=== PATIENT | female | born 1935 | race Caucasian/White ===

== ENCOUNTER 2017-02-24 10:23 | Emergency (ER) | payer MEDICARE ==
--- NOTE | 2017-02-24 11:03 | RAD ---
TWO VIEWS OF THE LEFT HIP: Date: 02-24-17 Comparison: CT pelvis 08-13-12 History: Joint pain, left hip pain. FINDINGS: Old fractures are noted involving the superior and inferior pubic rami on the left. There is mild bucio perior joint space narrowing involving the left hip. There is acetabular osteophyte formation seen l aterally. There is no acute fracture or evidence of dislocation. IMPRESSION: Old pelvic fractures and degenerative joint disease. No acute fracture or dislocation seen. POS: [facility]
== END 2017-02-24 11:40 | disposition home or self-care (01) ==
LOC: NAV ERS 10:23
DX: M16.12 Unilateral primary osteoarthritis, left hip (principal); I10 Essential (primary) hypertension

== ENCOUNTER 2017-09-14 10:02 | Emergency (ER) | payer MEDICARE ==
--- NOTE | 2017-09-14 11:05 | RAD ---
RIGHT ELBOW 2 VIEWS: Date: 09/14/17 HISTORY: Fall. Right elbow pain. FINDINGS/IMPRESSION: There is posterior dislocation at the elbow joint. There is suggestion of a fracture, likely from co ronoid process of the ulna. POS: [facility]
--- NOTE | 2017-09-14 11:08 | RAD ---
RADIOGRAPH RIGHT ELBOW TWO VIEWS: 09/14/2017 10:37 a.m. HISTORY: An 82-year-old female with an acute traumatic right elbow dislocation. COMPARISON: 09/14/2017 at 10:26 a.m. FINDINGS: The AP view is nondiagnostic because the elbow is still flexed 90 degrees, and the upper extremity i s oblique. On the lateral view, the previously demonstrated dislocation has been reduced. IMPRESSION: Interval successful reduction of the previously demonstrated acute traumatic posterior elbow disloca tion. POS: [facility]
== END 2017-09-14 11:25 | disposition home or self-care (01) ==
LOC: NAV ERS 10:02
DX: S53.124A Posterior dislocation of right ulnohumeral joint, initial encounter (principal); I10 Essential (primary) hypertension; W01.0XXA Fall on same level from slipping, tripping and stumbling without subsequent striking against object, initial encounter
CPT/HCPCS: 24600

== ENCOUNTER 2018-04-28 08:40 | Emergency (ER) | payer MEDICARE ==
[2018-04-28] MEDS ORDERED: Lidocaine 1% 20 ML MDV ONE (09:48)
--- NOTE | 2018-04-28 09:51 | RAD ---
LEFT THUMB 3 VIEWS: Date: 04/28/18 HISTORY: Thumb pain and swelling. FINDINGS: There are fairly pronounced arthritic changes of the thumb. These include changes of the first carpom etacarpal joint space, first metacarpal phalangeal joint, and interphalangeal joint. No acute bony pr ocess noted. IMPRESSION: Marked arthritic changes of the thumb. POS: [facility]
[2018-04-28] MEDS ORDERED: Clindamycin 150 MG CAP ONE (10:11)
== END 2018-04-28 10:25 | disposition home or self-care (01) ==
LOC: NAV ERS 08:40
DX: L02.522 Furuncle left hand (principal); E78.5 Hyperlipidemia, unspecified; F03.90 Unspecified dementia, unspecified severity, without behavioral disturbance, psychotic disturbance, mood disturbance, and anxiety; I10 Essential (primary) hypertension; Z79.899 Other long term (current) drug therapy
CPT/HCPCS: 10060; 87070; 87205; J2001

== ENCOUNTER 2018-12-08 11:08 | Outpatient (CLI) | payer MEDICARE ==
--- NOTE | 2018-12-08 13:30 | ULT ---
LEFT LOWER EXTREMITY VENOUS DUPLEX EXAM: HISTORY: Left leg edema and pain. FINDINGS: Real-time color Doppler evaluation of the left lower extremity was prepped from groin to calf. This includes evaluation of the common femoral, superficial and profunda femoral, saphenous, popliteal, an d posterior tibial veins. This shows a patent deep venous system. There is normal compressibility a nd augmentation. There is no evidence of DVT. IMPRESSION: No evidence of deep vein thrombosis of the left lower extremity. POS: [facility]
== END 2018-12-08 11:09 | disposition home or self-care (01) ==
LOC: NAV ULT 11:08
PROVIDERS: ATTEND Internal Medicine
DX: L03.116 Cellulitis of left lower limb (principal)

== ENCOUNTER 2019-02-06 20:28 | Emergency (ER) | payer MEDICARE ==
[2019-02-06] MEDS ORDERED: Dextrose 5 %-0.45 % NaCl 1,000 ML ONE (21:12)
[2019-02-06] MEDS ORDERED: Thiamine HCl 200 MG/2 ML VIAL ONE (21:12)
[2019-02-06] MEDS ORDERED: Multivit, Adult Inj 10 ML VIAL ONE (21:12)
[2019-02-06 21:20] LABS: #Basophils 0.1 thou/uL (0.0-0.2); #Eosinphils 0.1 thou/uL (0.0-0.7); #Lymphocytes 1.6 thou/uL (1.20-3.40); #Monocytes 0.6 thou/uL (0.11-0.59); #Neutrophils 4.3 thou/uL (1.40-6.50); %Basophils 0.8 % (0.0-1.0); %Eosinophils 2.1 % (0.0-10.0); %Lymphocytes 23.9 % (21.0-51.0); %Monocytes 8.5 % (0.0-10.0); %Neutrophils 64.7 % (42.0-75.0); Hemoglobin 13.7 g/dL (12.0-16.0); Mean Corpuscular HGB CONC 32.6 g/dL (32.0-36.0); Mean Corpuscular Hemoglobin 30.9 pg (27.0-31.0); Mean Corpuscular Volume 94.9 fL (78.0-98.0); Mean Platelet Volume 6.1 fL (7.4-10.4); Platelet Count 215 thou/uL (130-400); RBC Distribution Width 12.4 % (11.5-14.5); Red Blood Cell (RBC) Count 4.42 mill/uL (4.20-5.40); White Blood Cell (WBC) Count 6.7 thou/uL (4.8-10.8)
[2019-02-06] MEDS ORDERED: Multivitamin W/ Minerals 1 TAB PO SCH (21:30)
[2019-02-06] MEDS ORDERED: Lidocaine 1% w/Epinephrine 1:100K 30 ML VIAL ONE (21:30)
[2019-02-06 21:31] LABS: PTT 29.5 SEC (22.9-36.1); Prothrombin Time 13.2 SEC (12.0-14.7)
[2019-02-06 21:41] LABS: ALT (SGPT) 17 U/L (8-55); AST (SGOT) 29 U/L (5-34); Albumin 4.1 g/dL (3.4-4.8); Alkaline Phosphatase 85 U/L (40-150); Anion Gap 17 mmol/L (10-20); BUN (Urea Nitrogen) 21 mg/dL (9.8-20.1); Bilirubin, Total 0.4 mg/dL (0.2-1.2); CK (CPK) 36 U/L (29-168); Calc. Creatinine Clearance 0 mL/min (70-130); Calcium 9.9 mg/dL (7.8-10.44); Carbon Dioxide 21 mmol/L (23-31); Chloride 108 mmol/L (98-107); Estimated GFR-MDRD 60; Globulin 3.3 g/dL (2.4-3.5); Glucose 119 mg/dL (83-110); Potassium 3.6 mmol/L (3.5-5.1); Protein, Total 7.4 g/dL (6.0-8.3); Sodium 142 mmol/L (136-145)
--- NOTE | 2019-02-06 22:20 | CT ---
CT BRAIN: History: 83-year-old with history of fall with scalp hematoma. FINDINGS: Noncontrast enhanced CT images of the brain demonstrate a large right frontal scalp hematoma. Diffuse cortical atrophy and deep white matter ischemic changes seen. No evidence of acute intracrani al masses, hemorrhages, strokes or contusions seen. IMPRESSION: Large right frontal scalp hematoma. No acute intracranial abnormalities seen. POS: [facility]
--- NOTE | 2019-02-06 23:08 | CT ---
CT CERVICAL SPINE: History: Fall. Patient smelling of alcohol. Technique: Noncontrast enhanced CT images cervical spine obtained. Sagittal and coronal reconstructed images performed. FINDINGS: Images demonstrate atherosclerotic calcifications seen in the carotid arteries. There is grade II anterolisthesis of C4 on C5. Multilevel facet degenerative changes seen at C4-5, C5 -6, and C6-7. Disc space height loss with degenerative changes seen at the intervertebral disc spaces of C4-5, C5-6, and C6-7. There does appear to be an area of mild superior endplate collapse above the superior aspect of the T 1 vertebral body. This may represent a superior anterior aspect T1 approximately 20% compression frac ture. This area previously was not covered on previous CT from 05-25-15 to compare with today's exam. T herefore, I cannot determine whether this represents a new fracture or is an old finding. The rest of the cervical spine demonstrates no evidence of acute fractures and demonstrates multilevel degenerat jaskaran changes and spondylosis with facet and disc changes of spondylosis as well as Grade I anterolisth esis of C4 on C5. IMPRESSION: If there is concern for acute pathology, further evaluation using neurosurgical consultation and elec tive MRI of the cervicothoracic junction may further be able to characterize rather this is an acute or old finding. POS: [facility]
== END 2019-02-06 22:05 | disposition home or self-care (01) ==
LOC: NAV ERS 20:28
DX: S01.81XA Laceration without foreign body of other part of head, initial encounter (principal); S22.019A Unspecified fracture of first thoracic vertebra, initial encounter for closed fracture; I10 Essential (primary) hypertension; F03.90 Unspecified dementia, unspecified severity, without behavioral disturbance, psychotic disturbance, mood disturbance, and anxiety; E78.5 Hyperlipidemia, unspecified; Z79.899 Other long term (current) drug therapy; W22.8XXA Striking against or struck by other objects, initial encounter
CPT/HCPCS: 12011; 36415; 70450; 72125; 80053; 82550; 85025; 85610; 85730; 96374; 96375; J2001; J3411; J7042

== ENCOUNTER 2019-08-25 14:24 | Outpatient (CLI) | payer MEDICARE ==
[~2019-08-25 14:24] MED LIST: Iopamidol 370 76% 50 ML VIAL FS ONE
[2019-08-25 14:42] LABS: #Basophils 0.1 thou/uL (0.0-0.2); #Eosinphils 0.1 thou/uL (0.0-0.7); #Lymphocytes 1.6 thou/uL (1.20-3.40); #Monocytes 0.5 thou/uL (0.11-0.59); #Neutrophils 3.9 thou/uL (1.40-6.50); %Basophils 1.2 % (0.0-1.0); %Eosinophils 1.6 % (0.0-10.0); %Lymphocytes 26.1 % (21.0-51.0); %Monocytes 8.8 % (0.0-10.0); %Neutrophils 62.4 % (42.0-75.0); Hemoglobin 13.4 g/dL (12.0-16.0); Mean Corpuscular HGB CONC 32.3 g/dL (32.0-36.0); Mean Corpuscular Hemoglobin 29.6 pg (27.0-31.0); Mean Corpuscular Volume 91.6 fL (78.0-98.0); Mean Platelet Volume 7.7 fL (7.4-10.4); Platelet Count 221 thou/uL (130-400); RBC Distribution Width 11.7 % (11.5-14.5); Red Blood Cell (RBC) Count 4.51 mill/uL (4.20-5.40); White Blood Cell (WBC) Count 6.2 thou/uL (4.8-10.8)
[2019-08-25 15:00] LABS: ALT (SGPT) 18 U/L (8-55); AST (SGOT) 20 U/L (5-34); Alkaline Phosphatase 78 U/L (40-110); Anion Gap 14 mmol/L (10-20); BUN (Urea Nitrogen) 35 mg/dL (9.8-20.1); Bilirubin, Total 0.5 mg/dL (0.2-1.2); Calc. Creatinine Clearance 0 mL/min (70-130); Calcium 9.8 mg/dL (7.8-10.44); Carbon Dioxide 22 mmol/L (23-31); Chloride 107 mmol/L (98-107); Estimated GFR-MDRD 39; Glucose 97 mg/dL (83-110); Potassium 5.3 mmol/L (3.5-5.1); Sodium 138 mmol/L (136-145)
--- NOTE | 2019-08-26 08:28 | CT ---
CT ABDOMEN AND PELVIS WITH IV CONTRAST 08/25/2019 CLINICAL INFORMATION: Ascites. Alcoholic cirrhosis. COMPARISON: None. Technique: Multiple contiguous axial CT images are obtained through the abdomen and pelvis with IV contrast. Cor onal reformatted images are provided. FINDINGS: Lower Chest: Bibasilar atelectasis is present. Vessels: Vascular calcifications are seen in the abdominal aorta and involving the iliac arteries. Abdomen: Portal vein:Patent Gallbladder: Within normal limits for CT imaging. Liver: within normal limits. No hepatic mass is seen. Spleen: within normal limits. Pancreas: within normal limits. Adrenals: within normal limits. Kidneys: A nonobstructing 6 mm calculus is seen in the inferior pole left kidney with adjacent cortic al scarring present. A subcentimeter too small to characterize exophytic hypodense lesion is also seen in the inferior pole right kidney. The right kidney has a normal CT appearance. Bowel: Multiple colonic diverticula are seen primarily in the sigmoid colon and distal descending col on. Small amount of retained fecal material is seen throughout the colon. Loops of small bowel are normal in caliber. Appendix: The appendix is visualized and normal in caliber. Peritoneum: No ascites or free air; no fluid collection. Mesentery and Retroperitoneum: No enlarged mesenteric or retroperitoneal lymph nodes. Abdominal Wall: within normal limits. Pelvis: Reproductive Organs: Evidence of hysterectomy. Pelvis within normal limits. Bladder: within normal limits. Bones: There are burst fractures involving the L1 and L2 vertebral bodies with at least 50% loss of h eight involving these vertebral bodies. There is retropulsion of the posterior superior endplates of these vertebral bodies measuring approximately 5 mm. There is a mild compression fracture involvin g the superior endplate of the L3 vertebral body. The exact ages of these fractures is indeterminate based on this exam. Multilevel degenerative changes are seen in the lumbar spine. There is slight grade 1 anterolisthesis of L4 on L5 and L5 on S1. IMPRESSION: 1. No acute findings are seen in the abdomen or pelvis. 2. Colonic diverticulosis. 3. Nonobstructing inferior pole left renal calculus with associated adjacent cortical scarring. 4. Subcentimeter too small to characterize hypodense lesion inferior pole left kidney. 5. Burst fractures of the L1 and L2 vertebral bodies with mild compression fracture of the superior e ndplate L3 vertebral body of indeterminate age. In addition, there is slight anterolisthesis of L4 and L5 and L5 on S1.
== END 2019-08-25 14:25 | disposition home or self-care (01) ==
LOC: NAV CT 14:24
PROVIDERS: ATTEND Internal Medicine
DX: K70.31 Alcoholic cirrhosis of liver with ascites (principal); I50.22 Chronic systolic (congestive) heart failure; I11.0 Hypertensive heart disease with heart failure; K57.30 Diverticulosis of large intestine without perforation or abscess without bleeding; N20.0 Calculus of kidney; S32.011A Stable burst fracture of first lumbar vertebra, initial encounter for closed fracture; S32.021A Stable burst fracture of second lumbar vertebra, initial encounter for closed fracture; M43.16 Spondylolisthesis, lumbar region; S32.039A Unspecified fracture of third lumbar vertebra, initial encounter for closed fracture
CPT/HCPCS: 36415; 74177; 80053; 85025; Q9967

== ENCOUNTER 2021-09-14 08:16 | Emergency (ER) | payer MEDICARE ==
[2021-09-14 08:53] LABS: #Basophils 0.1 thou/uL (0.0-0.2); #Eosinphils 0.1 thou/uL (0.0-0.7); #Lymphocytes 1.6 thou/uL (1.20-3.40); #Monocytes 0.4 thou/uL (0.11-0.59); #Neutrophils 4.5 thou/uL (1.40-6.50); %Basophils 0.8 % (0.0-1.0); %Eosinophils 0.9 % (0.0-10.0); %Lymphocytes 23.9 % (21.0-51.0); %Monocytes 6.5 % (0.0-10.0); %Neutrophils 67.9 % (42.0-75.0); Mean Corpuscular HGB CONC 31.3 g/dL (32.0-36.0); Mean Corpuscular Hemoglobin 29.9 pg (27.0-31.0); Mean Corpuscular Volume 95.6 fL (78.0-98.0); Mean Platelet Volume 7.6 fL (7.4-10.4); Platelet Count 246 thou/uL (130-400); RBC Distribution Width 12.7 % (11.5-14.5); Red Blood Cell (RBC) Count 4.36 mill/uL (4.20-5.40); White Blood Cell (WBC) Count 6.6 thou/uL (4.8-10.8)
[2021-09-14 09:14] LABS: ALT (SGPT) 16 U/L (8-55); AST (SGOT) 24 U/L (5-34); Albumin 3.8 g/dL (3.4-4.8); Alkaline Phosphatase 77 U/L (40-110); Anion Gap 15 mmol/L (10-20); BUN (Urea Nitrogen) 31 mg/dL (9.8-20.1); Bilirubin, Total 0.5 mg/dL (0.2-1.2); Calc. Creatinine Clearance 0 mL/min (70-130); Calcium 9.6 mg/dL (7.8-10.44); Carbon Dioxide 23 mmol/L (23-31); Chloride 111 mmol/L (98-107); Globulin 3.4 g/dL (2.4-3.5); Glucose 97 mg/dL (83-110); Potassium 4.5 mmol/L (3.5-5.1); Protein, Total 7.2 g/dL (5.8-8.1); Sodium 144 mmol/L (136-145)
[2021-09-14] MEDS ORDERED: Sodium Chloride 0.9% 1,000 ML ONE (09:29)
[2021-09-14 09:32] LABS: Bilirubin Negative (Negative); Blood, Urine Negative (Negative); Glucose, Urine (Dipstick) Negative (Negative); Ketone, Urine Trace mg/dL (Negative); Leukocyte Moderate (Negative); Nitrite Positive (Negative); Protein, Urine (Dipstick) Trace mg/dL (Neg-Trace); Specific Gravity, Urine 1.025 (1.005-1.030); Urobilinogen 0.2 mg/dL (Less than 2)
[2021-09-14 09:33] LABS: Clarity SL HAZY (Clear)
[2021-09-14 09:42] LABS: Bacteria/HPF 4+ HPF (None Seen); RBC/HPF 0-3 HPF (0-3); Squamous Epithelial 0-3 HPF (0-3); WBC/HPF 21-50 HPF (0-3)
[2021-09-14] MEDS ORDERED: Sodium Chloride 0.9% 100 ML ONE (09:56)
[2021-09-14] MEDS ORDERED: cefTRIAXone\\ROCEPHIN 1 GM VIAL ONE (09:56)
[2021-09-14] MEDS ORDERED: Aspirin 325 MG TAB ONE (10:33)
[2021-09-14 12:18] LABS: SARS-CoV-2 NAA Rapid Test Not Detected (NotDetected)
== END 2021-09-14 11:24 | disposition short-term general hospital (02) ==
LOC: NAV ERS 08:16
DX: N39.0 Urinary tract infection, site not specified (principal); R53.1 Weakness; Z20.822 Contact with and (suspected) exposure to COVID-19; I10 Essential (primary) hypertension; E78.5 Hyperlipidemia, unspecified; E78.00 Pure hypercholesterolemia, unspecified; Z79.899 Other long term (current) drug therapy
CPT/HCPCS: 51701; 70450; 71045; 80053; 83880; 84484; 85025; 87077; 87086; 87186; 93005; 94760; 96365; 99285; U0002; 81003; 81015; J0696; J3490; J7050

== ENCOUNTER 2021-10-23 13:57 | Outpatient (CLI) | payer MEDICARE ==
[2021-10-23 14:21] LABS: Bilirubin Negative (Negative); Blood, Urine Trace (Negative); Clarity Cloudy (Clear); Glucose, Urine (Dipstick) Negative (Negative); Ketone, Urine Trace mg/dL (Negative); Leukocyte Small (Negative); Nitrite Positive (Negative); Protein, Urine (Dipstick) > or equal to 300 mg/dL (Neg-Trace); Specific Gravity, Urine 1.025 (1.005-1.030); pH, Urine 7.5 (5.0-9.0)
[2021-10-23 14:25] LABS: WBC/HPF Greater than 50 HPF (0-3)
[2021-10-23 14:27] LABS: Bacteria/HPF 4+ HPF (None Seen); Triple Phosphate Crystal 2+ HPF (None Seen)
== END 2021-10-23 13:58 | disposition home or self-care (01) ==
LOC: NAV LABSP 13:57
PROVIDERS: ATTEND Family Medicine
DX: I12.9 Hypertensive chronic kidney disease with stage 1 through stage 4 chronic kidney disease, or unspecified chronic kidney disease (principal); N39.0 Urinary tract infection, site not specified; N18.30 Chronic kidney disease, stage 3 unspecified
CPT/HCPCS: 81001; 87086